=== PATIENT | female | born 1990 | race Caucasian/White ===

== ENCOUNTER 2018-08-18 08:14 | Inpatient (IN) | payer OTHER ==
--- NOTE | 2018-08-18 08:44 | HP ---
COWS - Scale Resting Pulse: 0= [place] 80 or Below Sweatin= Chills/Flushing Restless Observation: 3= Extraneous Movement Pupil Size: 1= Pupils >than Normal Bone or Joint Aches: 2= Severe Diffuse Aches Runny Nose/ Eye Tearin= Runny Nose/Eyes GI Upset > 30mins: 3= Vomiting/Diarrhea Tremor Observation: 2= Slight Tremor Visible Yawning Observation: 2= >3x During Session Anxiety or Irritability: 2=Irritable/Anxious Goose Flesh Skin: 0=Smooth Skin COWS Score: 18 CIWA Score Nausea/Vomitin Muscle Tremors: 3 Anxiety: 2 Agitation: 2 Paroxysmal Sweats: 2 Orientation: 1-Uncertain about Date Tacttile Disturbances: 1-Very Mild Itch/Numbness Auditory Disturbances: 1-Very Mild Visual Disturbances: 0-None Headache: 2-Mild CIWA-Ar Total Score: 17 - Admission Criteria OASAS Guidelines: Admission for Medically Managed Detox: Requires at least one of the followin. CIWA greater than 12 2. Seizures within the past 24 hours 3. Delirium tremens within the past 24 hours 4. Hallucinations within the past 24 hours 5. Acute intervention needed for co occurring medical disorder 6. Acute intervention needed for co occurring psychiatric disorder 7. Severe withdrawal that cannot be handled at a lower level of care (continued vomiting, continued diarrhea, abnormal vital signs) requiring intravenous medication and/or fluids 8. Patient presents the following: CIWA greater than 12 Admission Criteria Met: Admission criteria met Admission ROS S - [facility] Chief Complaint: i need help to stop using heroin and xanax,and crack Allergies/Adverse Reactions: Allergies Allergy/AdvReac Type Severity Reaction Status Date / Time No Known Allergies Allergy Verified 08/18/18 09:15 History of Present Illness: this 28 years old female with heroin,xanax and crack dependence,seeking detox, withdrawal symptom,last detox in [place] in 03/05 had previous admission before seizure last 07/05 nicotine cigarette 4/day weight loss anxiety,depression,ptsd seen in [place] last night ,refer for detox no significant period of sobriety plan to go to rehab after detox Exam Limitations: No Limitations - Ebola screening Have you traveled outside of the country in the last 21 days: No Have you had contact with anyone from an Ebola affected area: No Do you have a fever: No - Review of Systems Constitutional: Chills, Loss of Appetite, Malaise, Night Sweats, Changes in sleep, Weakness, Unintentional Wgt. Loss EENT: reports: Tearing, Nose Congestion Cardiac: reports: No Symptoms Reported GI: reports: Diarrhea, Nausea, Vomiting, Abdominal cramping Musculoskeletal: reports: Back Pain, Joint Pain, Muscle Pain, Joint Stiffness Integumentary: reports: Dryness Neuro: reports: Headache, Tremors Endocrine: reports: No Symptoms Reported Hematology: reports: No Symptoms Reported Psychiatric: reports: Judgement Intact, Mood/Affect Appropiate, Orientated x3, Anxious, Depressed, other (ptsd) Other Systems: Reviewed and Negative Patient History - Patient Medical History Hx Anemia: No Hx Asthma: No Hx Chronic Obstructive Pulmonary Disease (COPD): No Hx Cancer: No Hx Cardiac Disorders: No Hx Congestive Heart Failure: No Hx Hypertension: No Hx Hypercholesterolemia: No Hx Pacemaker: No HX Cerebrovascular Accident: No Hx Seizures: Yes (last 07/05) Hx Dementia: No Hx Diabetes: No Hx Gastrointestinal Disorders: No Hx Liver Disease: No Hx Genitourinary Disorders: No Hx Sexually Transmitted Disorders: No Hx Renal Disease (ESRD): No Hx Thyroid Disease: No Hx Human Immunodeficiency Virus (HIV): No (last 04/03 negative) Hx Hepatitis C: No Hx Depression: Yes (anxiety,ptsd) Hx Suicide Attempt: No Hx Bipolar Disorder: No Hx Schizophrenia: No Other Medical History: no suicidal,no homicidal - Patient Surgical History Past Surgical History: No - PPD History Previous Implant?: Yes Documented Results: Negative w/o proof Implanted On Prior R Admission?: No PPD to be Administered?: Yes - Reproductive History Patient is a Female of Child Bearing Age (11 -55 yrs old): Yes Last Menstrual Period: 03/11/18 Patient : No - Smoking Cessation Smoking history: Current every day smoker Have you smoked in the past 12 months: Yes Aproximately how many cigarettes per day: 4 Cigars Per Day: 0 Hx Chewing Tobacco Use: No Initiated information on smoking cessation: Yes 'Breaking Loose' booklet given: 08/18/18 - Substance & Tx. History Hx Alcohol Use: No Hx Substance Use: Yes Substance Use Type: Cocaine, Heroin, Tranquilizers Hx Substance Use Treatment: Yes ([place] 03/04 completed) - Substances Abused Heroin Route: Injection Frequency: Daily Amount used: 15 to 20 bags Age of first use: 26 Date of Last Use: 08/18/18 Cocaine Route: Smoking Frequency: Daily Amount used: 100$ Age of first use: 27 Date of Last Use: 08/17/18 Alprazolam (Xanax) Frequency: 3-6 times per week Amount used: 4 mgs Age of first use: 26 Date of Last Use: 08/16/18 Family Disease History - Family Disease History Family Disease History: Other: Brother (dsa,sober), Sister (dsa,sober) Admission Physical Exam [facility] - Vital Signs Vital Signs: Vital Signs Temperature 97.7 F 08/18/18 08:40 Pulse Rate 77 08/18/18 08:40 Respiratory Rate 20 08/18/18 08:40 Blood Pressure 95/57 L 08/18/18 08:40 O2 Sat by Pulse Oximetry (%) - Physical General Appearance: Yes: Moderate Distress, Tremorous, Irritable, Sweating, Anxious HEENTM: Yes: Normal ENT Inspection, JAMAL, Pharynx Normal Respiratory: Yes: Within Normal Limits, Lungs Clear, Normal Breath Sounds Neck: Yes: Within Normal Limits, Supple, Trachea in good position Breast: Yes: Breast Exam Deferred Cardiology: Yes: Within Normal Limits, Regular Rhythm, Regular Rate, S1, S2 Abdominal: Yes: Within Normal Limits, Normal Bowel Sounds, Non Tender, Flat, Soft Genitourinary: Yes: Within Normal Limits Back: Yes: Muscle Spasm Musculoskeletal: Yes: full range of Motion, Back pain, Joint Stiffness, Muscle Pain Extremities: Yes: Normal Range of Motion, Tremors, Pedal Edema Neurological: Yes: Within Normal Limits, 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 NML intact, Fully Oriented, Alert, Motor Strength 5/5 Integumentary: Yes: Dry, Track Lugo, Other (abscess of right leg) Lymphatic: Yes: Within Normal Limits - Diagnostic (1) Opioid dependence with withdrawal Current Visit: Yes Status: Acute (2) Uncomplicated sedative, hypnotic or anxiolytic withdrawal Current Visit: Yes Status: Acute (3) Cocaine dependence Current Visit: Yes Status: Acute (4) IVDU (intravenous drug user) Current Visit: Yes Status: Acute (5) Weight loss Current Visit: Yes Status: Acute (6) Anxiety and depression Current Visit: Yes Status: Acute (7) PTSD (post-traumatic stress disorder) Current Visit: Yes Status: Acute (8) Seizure Current Visit: Yes Status: Acute (9) Abscess of right leg Current Visit: Yes Status: Acute Cleared for Admission S - Detox or Rehab [facility] Level of Care: Medically Managed Detox Regimen/Protocol: Methadone/Valium Inpatient Rehab Admission - Rehab Decision to Admit Inpatient rehab admission?: No
[2018-08-18 08:49] VITALS: BMI 25.0
[2018-08-18] MEDS ORDERED: ACETAMINOPHEN 325 MG TABLET (FP) PO PRN (09:03)
[2018-08-18] MEDS ORDERED: MAGNESIUM HYDROX 2400MG/30ML ORAL SUSPENSION 30 ML CUP PO PRN (09:03)
[2018-08-18] MEDS ORDERED: MENTHOL/PHENOL 1 EACH UD MM PRN (09:03)
[2018-08-18] MEDS ORDERED: LOPERAMIDE HCL 2 MG CAPSULE PO PRN (09:03)
[2018-08-18] MEDS ORDERED: guaiFENesin/D-METHORPHAN HB 10 ML UNIT-DOSE CUPS PO PRN (09:03)
[2018-08-18] MEDS ORDERED: hydrOXYzine PAMOATE 25 MG CAPSULE (FP) PO PRN (09:03)
[2018-08-18] MEDS ORDERED: MAGNESIUM CITRATE 300 ML BOTTLE PO PRN (09:03)
[2018-08-18] MEDS ORDERED: IBUPROFEN 400 MG TABLET (FP) PO PRN (09:03)
[2018-08-18] MEDS ORDERED: P-EPHED 60MG/TRIPROLIDI 2.5MG TABLET PO PRN (09:03)
[2018-08-18] MEDS ORDERED: MAG HYDROX/AL HYDROX/SIMETH 30 ML UNIT-DOSE CUP PO PRN (09:03)
[2018-08-18] MEDS ORDERED: diazePAM 5 MG TABLET PO ONE (10:15)
[2018-08-18] MEDS ORDERED: METHADONE HCL 10 MG TABLET (FOR DETOX USE ONLY) PO ONE ×2 (10:15→23:00)
[2018-08-18] MEDS: PRENATAL VITAMINS W/ FOLIC ACID TABLET (FP) PO SCH (11:05)
[2018-08-18] MEDS: NICOTINE 14 MG/24 HOURS TOPICAL PATCH TD SCH (11:10)
--- NOTE | 2018-08-18 13:59 | EKG ---
Test Reason : Blood Pressure : / mmHG Vent. Rate : 067 BPM Atrial Rate : 067 BPM P-R Int : 146 ms QRS Dur : 108 ms QT Int : 412 ms P-R-T Axes : -11 085 053 degrees QTc Int : 435 ms NORMAL SINUS RHYTHM NORMAL ECG NO PREVIOUS ECGS AVAILABLE Confirmed by ADRIA CARTER MD ([id number]) on 08/18/2018 1:59:13 PM Referred By: Confirmed By:ADRIA CARTER MD
[2018-08-18] MEDS: diazePAM 5 MG TABLET PO SCH ×2 (15:16→22:08)
[2018-08-18] MEDS: CEPHALEXIN MONOHYDRATE 500 MG CAPSULE (UD) PO SCH ×2 (15:16→22:07)
[2018-08-18] MEDS: diazePAM 5 MG TABLET PO PRN (18:51)
[2018-08-18] MEDS ORDERED: MELATONIN 5 MG TABLETS PO PRN (22:00)
[2018-08-18] MEDS ORDERED: THIAMINE HCL 100 MG TABLET (FP) PO SCH (22:00)
[2018-08-18] MEDS: BACITRACIN 0.9 GM PACKET TP SCH (22:07)
[2018-08-19] MEDS: CEPHALEXIN MONOHYDRATE 500 MG CAPSULE (UD) PO SCH ×2 (05:18→13:54)
[2018-08-19] MEDS: diazePAM 5 MG TABLET PO SCH ×2 (05:18→13:54)
[2018-08-19] MEDS: diazePAM 5 MG TABLET PO PRN (07:58)
[2018-08-19] MEDS ORDERED: BACLOFEN 10 MG TABLET (FP) PO ONE (09:27)
[2018-08-19] MEDS ORDERED: METHADONE HCL 10 MG TABLET (FOR DETOX USE ONLY) PO SCH (10:00)
--- NOTE | 2018-08-19 10:11 | PN ---
[facility] CIWA - CIWA Score Nausea/Vomitin-No Nausea/No Vomiting Muscle Tremors: 4-Moderate,w/Arms Extend Anxiety: 4-Mod. Anxious/Guarded Agitation: 4-Moderately Restless Paroxysmal Sweats: 3 Orientation: 0-Oriented Tacttile Disturbances: 0-None Auditory Disturbances: 0-None Visual Disturbances: 0-None Headache: 0-None Present CIWA-Ar Total Score: 15 BHS COWS - Scale Resting Pulse: 0= [place] 80 or Below Sweatin=Flushed/Facial Moisture Restless Observation: 1= Difficult to Sit Still Pupil Size: 0= Normal to Room Light Bone or Joint Aches: 2= Severe Diffuse Aches Runny Nose/ Eye Tearin= Runny Nose/Eyes GI Upset > 30mins: 1= Stomach Cramp Tremor Observation of Outstretched Hands: 2= Slight Tremor Visible Yawning Observation: 2= >3x During Session Anxiety or Irritability: 2=Irritable/Anxious Goose Flesh Skin: 3=Piloerection COWS Score: 17 B[facility] Progress Note (SOAP) Subjective: agitation sweats shakes interrupted sleep restless muscle spasms irritable Objective: 08/19/18 10:17 Vital Signs Temperature 97.3 F L 08/19/18 09:38 Pulse Rate 71 08/19/18 09:38 Respiratory Rate 18 08/19/18 09:38 Blood Pressure 108/62 08/19/18 09:38 O2 Sat by Pulse Oximetry (%) Laboratory Tests 08/18/18 09:50 HIV 1&2 Antibody Screen Negative HIV P24 Antigen Negative rest of labs pending aaox3 ambulating no acute distress Assessment: 08/19/18 10:17 withdrawal sx Plan: continue detox increase fluids labs pending
[2018-08-19] MEDS: BACITRACIN 0.9 GM PACKET TP SCH (10:16)
[2018-08-19] MEDS: PRENATAL VITAMINS W/ FOLIC ACID TABLET (FP) PO SCH (10:17)
[2018-08-19] MEDS: NICOTINE 14 MG/24 HOURS TOPICAL PATCH TD SCH (10:17)
[2018-08-19 10:39] LABS: ALBUMIN 3.6 g/dl (3.4-5.0); ALK PHOS 100 U/L (45-117); ANION GAP 6 MMOL/L (8-16); BILIRUBIN,TOTAL 0.8 mg/dL (0.2-1); BLOOD UREA NITROGEN 12 mg/dL (7-18); CALCIUM 8.6 mg/dL (8.5-10.1); CHLORIDE 105 mmol/L (98-107); CO2 27 mmol/L (21-32); CREATININE 0.7 mg/dL (0.55-1.3); GLUCOSE,RANDOM 97 mg/dL (74-106); POTASSIUM 3.6 mmol/L (3.5-5.1); SGOT/AST 18 U/L (15-37); SGPT/ALT 20 U/L (13-61); SODIUM 138 mmol/L (136-145); TOT PROT 8.1 g/dl (6.4-8.2)
[2018-08-19 10:59] LABS: HEMOGLOBIN 11.9 GM/dL (10.7-15.3); MCH 27.8 pg (25.7-33.7); MCHC 33.2 g/dl (32.0-36.0); MEAN CELL VOLUME 83.7 fl (80-96); MEAN PLT VOLUME 9.7 fl (7.5-11.1); PLATELET COUNT 387 K/MM3 (134-434); RDW 16.1 % (11.6-15.6); WHITE BLOOD COUNT 9.3 K/mm3 (4.0-10.0)
[2018-08-19 12:28] LABS: SICKLE CELL SCREEN NEGATIVE (NEGATIVE)
[2018-08-19 13:47] VITALS: BP 103/69; PULSE 80; TEMP 95.7
[2018-08-19] MEDS ORDERED: BACLOFEN 10 MG TABLET (FP) PO SCH (14:00)
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
--- NOTE | 2018-08-19 15:45 | DS ---
[facility] Detox Discharge Summary Admission Date: 08/18/18 Discharge Date: 08/19/18 - History Present History: Cocaine Dependence, Opioid Dependence - Physical Exam Results Vital Signs: Vital Signs Temperature 95.7 F L 08/19/18 13:46 Pulse Rate 80 08/19/18 13:46 Respiratory Rate 18 08/19/18 13:46 Blood Pressure 103/69 08/19/18 13:46 O2 Sat by Pulse Oximetry (%) - Treatment Hospital Course: Discharged Condition Good - Medication Discharge Medications: Ambulatory Orders Fluoxetine HCl [Prozac] 60 mg PO DAILY 08/18/18 Gabapentin 300 mg PO TID 08/18/18 - AMA Did Patient Leave Against Medical Advice: No (administrative d/c/involuntary d/c )
[2018-08-20] MEDS ORDERED: diazePAM 5 MG TABLET PO SCH (10:00)
[2018-08-20] MEDS ORDERED: METHADONE HCL 5 MG TABLET (FOR DETOX USE ONLY) PO SCH (10:00)
[2018-08-22] MEDS ORDERED: METHADONE HCL 10 MG TABLET (FOR DETOX USE ONLY) PO SCH (10:00)
[2018-08-22] MEDS ORDERED: diazePAM 5 MG TABLET PO SCH (10:00)
[2018-08-23] MEDS ORDERED: METHADONE HCL 5 MG TABLET (FOR DETOX USE ONLY) PO SCH (06:00)
== END 2018-08-19 13:36 | disposition left against medical advice (07) | DRG 773 ==
LOC: YASAS 08:14 → Y6N 09:43
PROVIDERS: ADMIT Surgery; ATTEND Surgery
PROC: HZ2ZZZZ Detoxification Services for Substance Abuse Treatment (ICD-10-PCS; principal; 2018-08-18)
DX: F11.23 Opioid dependence with withdrawal (principal); F13.230 Sedative, hypnotic or anxiolytic dependence with withdrawal, uncomplicated; F14.20 Cocaine dependence, uncomplicated; F43.10 Post-traumatic stress disorder, unspecified; F41.8 Other specified anxiety disorders; F32.9 Major depressive disorder, single episode, unspecified; R56.9 Unspecified convulsions; L02.415 Cutaneous abscess of right lower limb; R63.4 Abnormal weight loss; Z68.25 Body mass index [BMI] 25.0-25.9, adult
CPT/HCPCS: 36415; 80053; 85027; 85660; 86593; 87389; 93005; 93010; J0475